=== PATIENT | male | born 1975 | race Caucasian/White ===

== ENCOUNTER 2019-11-19 23:00 | Emergency (ER) | payer MEDICARE ==
[2019-11-19] MEDS ORDERED: Lidocaine 1% w/Epinephrine 1:100K 20 ML VIAL ONE ×2 (23:35)
[2019-11-20] MEDS ORDERED: Adacel (T-DAP) 0.5 ML SYRINGE ONE (00:11)
== END 2019-11-20 00:18 | disposition home or self-care (01) ==
LOC: ERS 23:00
DX: L02.415 Cutaneous abscess of right lower limb (principal); L03.115 Cellulitis of right lower limb; F17.210 Nicotine dependence, cigarettes, uncomplicated
CPT/HCPCS: 10060; 90471; 90715

== ENCOUNTER 2020-01-09 09:44 | Outpatient (CLI) | payer MEDICARE ==
--- NOTE | 2020-01-09 11:48 | MRI ---
MRI of thebrain with and without contrast: 01/09/2020 COMPARISON:01/05/2015 HISTORY:Multiple sclerosis TECHNIQUE: Multiplanar multisequence MR imaging of thebrain with and without contrast Findings:The diffusion weighted imaging demonstrates no evidence for acute infarction. The axial grad ient echo imaging demonstrates no evidence for intracranial hemorrhage. Sagittal FLAIR imaging demonstrated multiple small foci of increased signal intensity along the under surface of the corpus callosum, most prominent posteriorly, consistent with the patient's history of multiple sclerosis. The axial FLAIR imaging demonstrates numerous foci of increased signal intensity within the subcortic al, deep, and periventricular white matter. When compared to the prior examination, some of the white matter lesions are less conspicuous, including multiple left-sided periventricular lesions whic h have decreased in size when compared to the prior exam. One of the deep white matter lesions within the posterior left parietal region noted on the prior examination is no longer visualized. The re are no definite new lesions when compared to the prior study. The visualized paranasal sinuses and mastoid air cells are grossly unremarkable. Arterial flow voids at the axial level of the skull base appear unremarkable on the T2-weighted imagi ng. The postcontrast imaging demonstrates no abnormal enhancement within the brain parenchyma to suggest the presence of active demyelination. IMPRESSION:Evidence of multiple sclerosis with numerous white matter lesions demonstrating a perivent ricular, deep, and subcortical distribution. Of note, some of the lesions seen on the prior examination have decreased in conspicuity and a few of the lesions seen on the prior examination have resolved. No new lesions are seen and no enhancing lesions are seen to suggest the presence of active demyelination
== END 2020-01-09 09:45 | disposition home or self-care (01) ==
LOC: TBSIIMAG 09:44
PROVIDERS: ATTEND Psychiatry & Neurology Neurology
DX: G35 Multiple sclerosis (principal); R90.82 White matter disease, unspecified
CPT/HCPCS: 70553

== ENCOUNTER 2023-06-16 22:36 | Inpatient (IN) | payer MEDICARE ==
[2023-06-16 22:41] VITALS: BMI 27.3
[2023-06-17] MEDS ORDERED: Acetaminophen 325 MG TAB PO PRN (00:12)
[2023-06-17] MEDS ORDERED: Ondansetron PF 4 MG/2 ML Vial IVP PRN (00:12)
[2023-06-17] MEDS ORDERED: HYDROcodone/Acetaminophen 10/325 mg Tablet PO PRN (00:12)
[2023-06-17] MEDS: methylPREDNISolone Sod Succ 1 GM in Sodium Chloride 0.9% 250 ML 250 ML IVPB SCH (01:13)
[2023-06-17] MEDS ORDERED: methylPREDNISolone Sod Succ 1,000 MG in Sodium Chloride 0.9% 250 ML 250 ML IVPB SCH (01:30)
[2023-06-17] MEDS: methylPREDNISolone Sod Succ/PF 125 MG/2 ML VIAL IVP SCH (01:39)
[2023-06-17 04:50] LABS: #Basophils Less than 0.0 thou/uL (0.0-0.2); #Eosinphils Less than 0.0 thou/uL (0.0-0.7); #Monocytes 0.2 thou/uL (0.11-0.59); #Neutrophils 3.9 thou/uL (1.40-6.50); %Basophils 0.4 % (0.0-1.0); %Eosinophils 0.2 % (0.0-10.0); %Neutrophils 85.2 % (42.0-75.0); Hematocrit 44.8 % (42.0-52.0); Hemoglobin 15.3 g/dL (14.0-18.0); Mean Corpuscular HGB CONC 34.2 g/dL (32.0-36.0); Mean Corpuscular Hemoglobin 32.2 pg (27.0-31.0); Mean Corpuscular Volume 94.3 fl (78.0-98.0); Mean Platelet Volume 10.6 fL (7.4-10.4); Platelet Count 151 10x3/uL (130-400); RBC Distribution Width 12.9 % (11.5-14.5); Red Blood Cell (RBC) Count 4.75 mill/uL (4.70-6.10); White Blood Cell (WBC) Count 4.6 10x3/uL (4.8-10.8)
[2023-06-17 05:00] LABS: Anion Gap 13 mmol/L (10-20); BUN (Urea Nitrogen) 13 mg/dL (8.9-20.6); Calc. Creatinine Clearance 92 mL/min (70-130); Calcium 8.9 mg/dL (7.8-10.44); Carbon Dioxide 20 mmol/L (22-29); Chloride 109 mmol/L (98-107); Estimated GFR 84; Glucose 107 mg/dL (70-105); Potassium 4.3 mmol/L (3.5-5.1); Sodium 138 mmol/L (136-145)
[2023-06-17] MEDS ORDERED: methylPREDNISolone Sod Succ/PF 125 MG/2 ML VIAL IVP SCH (09:00)
[2023-06-17] MEDS ORDERED: Magnevist 469MG/ML 20 ML VIAL ONE (13:19)
[2023-06-17] MEDS: Atorvastatin Calcium 10 MG TAB PO SCH (22:49)
[2023-06-18] MEDS: Baclofen 10 MG TAB PO SCH ×2 (09:06→21:32)
[2023-06-18] MEDS: Gabapentin 300 MG CAP PO SCH (21:32)
[2023-06-19 07:31] VITALS: BP 131/71; TEMP 98.2
== END 2023-06-19 10:26 | disposition home or self-care (01) | DRG 60 ==
LOC: 2SE 22:36
PROVIDERS: ADMIT Family Medicine; ATTEND Internal Medicine
DX: G35 Multiple sclerosis (principal); M79.601 Pain in right arm; M79.602 Pain in left arm; E78.5 Hyperlipidemia, unspecified; G37.9 Demyelinating disease of central nervous system, unspecified; Z79.899 Other long term (current) drug therapy
CPT/HCPCS: 36415; 70553; 80048; 85025; A9579; J2930; J7050